=== PATIENT | male | born 1975 | race African-American/Black ===

== ENCOUNTER 2021-01-01 09:48 | Inpatient (IN) | payer OTHER ==
[2021-01-01 10:21] VITALS: BMI 24.9
[2021-01-01] MEDS ORDERED: MAGNESIUM CITRATE 300 ML BOTTLE PO PRN (11:33)
[2021-01-01] MEDS ORDERED: IBUPROFEN 400 MG TABLET (FP) PO PRN (11:33)
[2021-01-01] MEDS ORDERED: MENTHOL/PHENOL 1 EACH UD MM PRN (11:33)
[2021-01-01] MEDS ORDERED: MAGNESIUM HYDROX 2400MG/30ML ORAL SUSPENSION 30 ML CUP PO PRN (11:33)
[2021-01-01] MEDS ORDERED: MAG HYDROX/AL HYDROX/SIMETH 30 ML UNIT-DOSE CUP PO PRN (11:33)
[2021-01-01] MEDS ORDERED: ACETAMINOPHEN 325 MG TABLET (FP) PO PRN ×2 (11:33)
[2021-01-01] MEDS ORDERED: NICOTINE POLACRILEX 2 MG GUM BUC PRN (11:33)
[2021-01-01] MEDS ORDERED: BISMUTH SUBSALICYLATE 262 MG/15 ML BTL PO PRN (11:33)
[2021-01-01] MEDS ORDERED: METHOCARBAMOL 500 MG TABLET PO PRN (11:33)
[2021-01-01] MEDS ORDERED: ONDANSETRON *ODT* 4 MG TABLET SL PRN (11:33)
[2021-01-01] MEDS: NICOTINE 21 MG/24 HOURS TOPICAL PATCH TD SCH (12:29)
[2021-01-01] MEDS: PRENATAL VITAMINS W/ FOLIC ACID TABLET (FP) PO SCH (12:30)
[2021-01-01] MEDS ORDERED: MELATONIN 5 MG TABLETS PO PRN (14:30)
[2021-01-01 14:39] LABS: HEMATOCRIT 34.6 % (35.4-49); HEMOGLOBIN 11.6 GM/dL (11.7-16.9); MCH 30.4 pg (25.7-33.7); MCHC 33.6 g/dl (32.0-35.9); MEAN CELL VOLUME 90.4 fl (80-96); MEAN PLT VOLUME 9.1 fl (7.5-11.1); PLATELET COUNT 250 K/MM3 (134-434); RBC 3.83 M/mm3 (4.00-5.60); RDW 13.9 % (11.9-15.9); WHITE BLOOD COUNT 4.8 K/mm3 (4.0-10.0)
[2021-01-01 14:47] LABS: ALBUMIN 3.7 g/dl (3.4-5.0)
[2021-01-01 14:49] LABS: BLOOD UREA NITROGEN 19.2 mg/dL (7-18); CALCIUM 8.6 mg/dL (8.5-10.1)
[2021-01-01 14:51] LABS: CREATININE 0.8 mg/dL (0.55-1.3)
[2021-01-01 14:53] LABS: BILIRUBIN,TOTAL 0.3 mg/dL (0.2-1); TOT PROT 6.9 g/dl (6.4-8.2)
[2021-01-01] MEDS: hydrOXYzine PAMOATE 25 MG CAPSULE (FP) PO SCH ×3 (14:53→22:15)
[2021-01-01 15:34] LABS: HIV INTERPRETATION NEGATIVE (NEGATIVE)
[2021-01-01] MEDS ORDERED: OLANZapine 10 MG TABLET PO SCH (22:00)
[2021-01-01] MEDS ORDERED: MELATONIN 5 MG TABLETS PO SCH (22:00)
[2021-01-01] MEDS ORDERED: THIAMINE HCL 100 MG TABLET (FP) PO SCH (22:00)
[2021-01-02] MEDS: hydrOXYzine PAMOATE 25 MG CAPSULE (FP) PO SCH ×3 (05:19→14:53)
[2021-01-02] MEDS ORDERED: diazePAM 5 MG TABLET PO PRN (09:27)
[2021-01-02 09:35] VITALS: TEMP 97.8
[2021-01-02] MEDS: NICOTINE 21 MG/24 HOURS TOPICAL PATCH TD SCH (10:17)
[2021-01-02] MEDS: PRENATAL VITAMINS W/ FOLIC ACID TABLET (FP) PO SCH (10:17)
[2021-01-02] MEDS ORDERED: diazePAM 5 MG TABLET PO SCH (11:00)
[2021-01-02 13:00] VITALS: BP 108/77; PULSE 96
[2021-01-04] MEDS ORDERED: diazePAM 5 MG TABLET PO SCH (06:00)
[2021-01-05] MEDS ORDERED: diazePAM 5 MG TABLET PO SCH (06:00)
[2021-01-06] MEDS ORDERED: diazePAM 5 MG TABLET PO ONE (06:00)
== END 2021-01-02 15:40 | disposition left against medical advice (07) | DRG 770 ==
LOC: YASAS 09:48 → Y6N 11:42 → UNDOADMIN 11:42
PROVIDERS: ADMIT Allergy & Immunology; ATTEND Allergy & Immunology
PROC: HZ2ZZZZ Detoxification Services for Substance Abuse Treatment (ICD-10-PCS; principal; 2021-01-01)
DX: F10.230 Alcohol dependence with withdrawal, uncomplicated (principal); F14.20 Cocaine dependence, uncomplicated; F12.20 Cannabis dependence, uncomplicated; F17.210 Nicotine dependence, cigarettes, uncomplicated; F20.9 Schizophrenia, unspecified; F19.280 Other psychoactive substance dependence with psychoactive substance-induced anxiety disorder; F19.282 Other psychoactive substance dependence with psychoactive substance-induced sleep disorder; I69.154 Hemiplegia and hemiparesis following nontraumatic intracerebral hemorrhage affecting left non-dominant side; Z56.0 Unemployment, unspecified; Z59.0 Homelessness
CPT/HCPCS: 36415; 80053; 85027; 86780; 87389; C9803; U0003; U0005

== ENCOUNTER 2021-02-24 12:29 | Inpatient (IN) | payer OTHER ==
[2021-02-24 13:04] VITALS: BMI 22.4
[2021-02-24] MEDS ORDERED: MENTHOL/PHENOL 1 EACH UD MM PRN (14:24)
[2021-02-24] MEDS ORDERED: ACETAMINOPHEN 325 MG TABLET (FP) PO PRN ×2 (14:24)
[2021-02-24] MEDS ORDERED: MAGNESIUM HYDROX 2400MG/30ML ORAL SUSPENSION 30 ML CUP PO PRN (14:24)
[2021-02-24] MEDS ORDERED: BISMUTH SUBSALICYLATE 524 MG/30 ML PO PRN (14:24)
[2021-02-24] MEDS ORDERED: MAGNESIUM CITRATE 300 ML BOTTLE PO PRN (14:24)
[2021-02-24] MEDS ORDERED: IBUPROFEN 400 MG TABLET (FP) PO PRN (14:24)
[2021-02-24] MEDS ORDERED: METHOCARBAMOL 500 MG TABLET PO PRN (14:24)
[2021-02-24] MEDS ORDERED: ONDANSETRON *ODT* 4 MG TABLET SL PRN (14:24)
[2021-02-24] MEDS ORDERED: NICOTINE POLACRILEX 2 MG GUM BUC PRN (14:24)
[2021-02-24] MEDS ORDERED: MAG HYDROX/AL HYDROX/SIMETH 30 ML UNIT-DOSE CUP PO PRN (14:24)
[2021-02-24] MEDS ORDERED: cloNIDine HCL 0.1 MG TABLET PO PRN (14:40)
[2021-02-24] MEDS: hydrOXYzine PAMOATE 25 MG CAPSULE (FP) PO PRN (17:31)
[2021-02-24] MEDS: THIAMINE HCL 100 MG TABLET (FP) PO SCH (21:37)
[2021-02-24] MEDS ORDERED: MELATONIN 5 MG TABLETS PO SCH (22:00)
[2021-02-25] MEDS: PRENATAL VITAMINS W/ FOLIC ACID TABLET (FP) PO SCH (10:27)
[2021-02-25] MEDS: hydrOXYzine PAMOATE 25 MG CAPSULE (FP) PO PRN ×2 (10:28→22:12)
[2021-02-25] MEDS ORDERED: methaDONE HCL 10 MG TABLET (FOR DETOX USE ONLY) PO ONE (10:30)
[2021-02-25] MEDS ORDERED: MELATONIN 5 MG TABLETS PO PRN (11:28)
[2021-02-25] MEDS ORDERED: OLANZapine 10 MG TABLET PO SCH (22:00)
[2021-02-25] MEDS: THIAMINE HCL 100 MG TABLET (FP) PO SCH (22:12)
[2021-02-26] MEDS ORDERED: methaDONE HCL 10 MG TABLET (FOR DETOX USE ONLY) ONE (09:16)
[2021-02-26] MEDS: PRENATAL VITAMINS W/ FOLIC ACID TABLET (FP) PO SCH (10:38)
[2021-02-26 16:16] LABS: CHLORIDE 109 mmol/L (98-107); SODIUM 140 mmol/L (136-145)
[2021-02-26 16:18] LABS: HEMATOCRIT 38.4 % (35.4-49); HEMOGLOBIN 12.5 GM/dL (11.7-16.9); MCH 29.8 pg (25.7-33.7); MCHC 32.5 g/dl (32.0-35.9); MEAN CELL VOLUME 91.7 fl (80-96); MEAN PLT VOLUME 8.8 fl (7.5-11.1); PLATELET COUNT 269 10^3/uL (134-434); RBC 4.19 M/mm3 (4.00-5.60); RDW 14.6 % (11.9-15.9); WHITE BLOOD COUNT 5.1 K/mm3 (4.0-10.0)
[2021-02-26 16:23] LABS: ANION GAP 5 MMOL/L (8-16); BLOOD UREA NITROGEN 11.4 mg/dL (7-18); CALCIUM 8.3 mg/dL (8.5-10.1); CO2 27 mmol/L (21-32); GLUCOSE,RANDOM 101 mg/dL (74-106); SGOT/AST 12 U/L (15-37); SGPT/ALT 16 U/L (13-61)
[2021-02-26 16:24] LABS: BILIRUBIN,TOTAL < 0.1 mg/dL (0.2-1); TOT PROT 6.1 g/dl (6.4-8.2)
[2021-02-26 16:26] LABS: ALK PHOS 72 U/L (45-117)
[2021-02-26 16:27] LABS: CREATININE 0.8 mg/dL (0.55-1.3)
[2021-02-26 17:26] VITALS: BP 109/66; PULSE 95; TEMP 96.8
[2021-02-27] MEDS ORDERED: methaDONE HCL 10 MG TABLET (FOR DETOX USE ONLY) PO ONE (10:00)
[2021-03-01] MEDS ORDERED: methaDONE HCL 10 MG TABLET (FOR DETOX USE ONLY) PO ONE (10:00)
== END 2021-02-26 19:46 | disposition left against medical advice (07) | DRG 770 ==
LOC: YASAS 12:29 → Y3N 15:38
PROVIDERS: ADMIT Allergy & Immunology; ATTEND Allergy & Immunology
PROC: HZ2ZZZZ Detoxification Services for Substance Abuse Treatment (ICD-10-PCS; principal; 2021-02-24)
DX: F11.23 Opioid dependence with withdrawal (principal); F10.20 Alcohol dependence, uncomplicated; F14.20 Cocaine dependence, uncomplicated; F12.20 Cannabis dependence, uncomplicated; F17.210 Nicotine dependence, cigarettes, uncomplicated; F20.9 Schizophrenia, unspecified; M25.622 Stiffness of left elbow, not elsewhere classified; M25.632 Stiffness of left wrist, not elsewhere classified; M24.542 Contracture, left hand; I69.854 Hemiplegia and hemiparesis following other cerebrovascular disease affecting left non-dominant side; I69.892 Facial weakness following other cerebrovascular disease
CPT/HCPCS: 36415; 80053; 85027; 86780; C9803; U0003; U0005

== ENCOUNTER 2021-07-10 10:56 | Inpatient (IN) | payer OTHER ==
[2021-07-10] MEDS ORDERED: BISMUTH SUBSALICYLATE 524 MG/30 ML PO PRN (11:33)
[2021-07-10] MEDS ORDERED: MAG HYDROX/AL HYDROX/SIMETH 30 ML UNIT-DOSE CUP PO PRN (11:33)
[2021-07-10] MEDS ORDERED: IBUPROFEN 400 MG TABLET (FP) PO PRN (11:33)
[2021-07-10] MEDS ORDERED: MAGNESIUM CITRATE 300 ML BOTTLE PO PRN (11:33)
[2021-07-10] MEDS ORDERED: MAGNESIUM HYDROX 2400MG/30ML ORAL SUSPENSION 30 ML CUP PO PRN (11:33)
[2021-07-10] MEDS ORDERED: MENTHOL/PHENOL 1 EACH UD MM PRN (11:33)
[2021-07-10] MEDS ORDERED: ACETAMINOPHEN 325 MG TABLET (FP) PO PRN ×2 (11:33)
[2021-07-10] MEDS ORDERED: ONDANSETRON *ODT* 4 MG TABLET SL PRN (11:33)
[2021-07-10] MEDS ORDERED: METHOCARBAMOL 500 MG TABLET PO PRN (11:33)
[2021-07-10] MEDS ORDERED: NICOTINE 10 MG CARTRIDGE (INHALER) IH PRN (11:33)
[2021-07-10 11:46] VITALS: BMI 22.2
[2021-07-10] MEDS: PRENATAL VITAMINS W/ FOLIC ACID TABLET (FP) PO SCH (13:28)
[2021-07-10] MEDS: hydrOXYzine PAMOATE 25 MG CAPSULE (FP) PO SCH ×3 (13:31→22:36)
[2021-07-10 16:47] LABS: HEMATOCRIT 45.2 % (35.4-49); HEMOGLOBIN 15.1 GM/dL (11.7-16.9); MCH 30.2 pg (25.7-33.7); MCHC 33.3 g/dl (32.0-35.9); MEAN CELL VOLUME 90.6 fl (80-96); PLATELET COUNT 235 10^3/uL (134-434); RBC 4.99 M/mm3 (4.00-5.60); RDW 15.4 % (11.9-15.9); WHITE BLOOD COUNT 4.5 K/mm3 (4.0-10.0)
[2021-07-10 16:48] LABS: ALBUMIN 3.8 g/dl (3.4-5.0); BLOOD UREA NITROGEN 18.5 mg/dL (7-18); CALCIUM 9.4 mg/dL (8.5-10.1)
[2021-07-10 16:53] LABS: BILIRUBIN,TOTAL 0.4 mg/dL (0.2-1); TOT PROT 8.1 g/dl (6.4-8.2)
[2021-07-10] MEDS ORDERED: DIVALPROEX SODIUM 500 MG TABLET E.C. PO SCH (22:00)
[2021-07-10] MEDS ORDERED: risperiDONE 1 MG TABLET PO SCH (22:00)
[2021-07-10] MEDS: MELATONIN 5 MG TABLETS PO SCH (22:35)
[2021-07-10] MEDS: THIAMINE HCL 100 MG TABLET (FP) PO SCH (22:35)
[2021-07-10] MEDS: risperiDONE 0.5 MG TABLET PO SCH (22:36)
[2021-07-10] MEDS: BISMUTH SUBSALICYLATE 524 MG/30 ML PO PRN (22:57)
[2021-07-11] MEDS: hydrOXYzine PAMOATE 25 MG CAPSULE (FP) PO SCH ×6 (05:44→22:42)
[2021-07-11] MEDS ORDERED: NICOTINE 14 MG/24 HOURS TOPICAL PATCH TD SCH (10:00)
[2021-07-11] MEDS: PRENATAL VITAMINS W/ FOLIC ACID TABLET (FP) PO SCH (10:28)
[2021-07-11] MEDS: BISMUTH SUBSALICYLATE 524 MG/30 ML PO PRN (10:29)
[2021-07-11] MEDS: risperiDONE 0.5 MG TABLET PO SCH ×2 (10:29→22:42)
[2021-07-11] MEDS: THIAMINE HCL 100 MG TABLET (FP) PO SCH (22:42)
[2021-07-11] MEDS: MELATONIN 5 MG TABLETS PO SCH (22:45)
[2021-07-12] MEDS: hydrOXYzine PAMOATE 25 MG CAPSULE (FP) PO SCH (06:11)
[2021-07-12] MEDS: BISMUTH SUBSALICYLATE 524 MG/30 ML PO PRN (06:19)
[2021-07-12 09:21] VITALS: BP 127/81; PULSE 96; TEMP 98.1
== END 2021-07-12 09:56 | disposition home or self-care (01) | DRG 774 ==
LOC: YASAS 10:56 → Y6N 12:39
PROVIDERS: ADMIT Allergy & Immunology; ATTEND Allergy & Immunology
PROC: HZ2ZZZZ Detoxification Services for Substance Abuse Treatment (ICD-10-PCS; principal; 2021-07-10)
DX: F10.230 Alcohol dependence with withdrawal, uncomplicated (principal); F14.20 Cocaine dependence, uncomplicated; F12.20 Cannabis dependence, uncomplicated; F17.210 Nicotine dependence, cigarettes, uncomplicated; F19.24 Other psychoactive substance dependence with psychoactive substance-induced mood disorder; F19.282 Other psychoactive substance dependence with psychoactive substance-induced sleep disorder; I10 Essential (primary) hypertension; R19.7 Diarrhea, unspecified; R10.9 Unspecified abdominal pain; I69.354 Hemiplegia and hemiparesis following cerebral infarction affecting left non-dominant side; G47.00 Insomnia, unspecified; Z91.19 Patient's noncompliance with other medical treatment and regimen; Z56.0 Unemployment, unspecified; Z59.02 Unsheltered homelessness
CPT/HCPCS: 36415; 80053; 80164; 85027; 86780; C9803; Q0162; U0003; U0005

== ENCOUNTER 2021-07-11 12:42 | Emergency (ER) | payer OTHER ==
[2021-07-11 13:39] VITALS: TEMP 98.6; BMI 24.3
[2021-07-11] MEDS ORDERED: ONDANSETRON 4 MG/2 ML VIAL IVPB ONE (14:42)
[2021-07-11] MEDS ORDERED: SODIUM CHLORIDE 0.9% 500 ML INFUS.BAG IV ONE (14:42)
[2021-07-11] MEDS ORDERED: FAMOTIDINE 20 MG/50 ML IVPB 20 MG in PREMIX 50 IVPB ONE (14:42)
[2021-07-11] MEDS ORDERED: MAG HYDROX/AL HYDROX/SIMETH -MYLANTA- ORAL SUSPENSION PO ONE (14:42)
[2021-07-11] MEDS ORDERED: MAG HYDROX/AL HYDROX/SIMETH 30 ML UNIT-DOSE CUP ONE (16:14)
[2021-07-11] MEDS ORDERED: FAMOTIDINE 20 MG/50 ML IVPB 20 MG/50 ML MG IVPB ONE (16:15)
[2021-07-11] MEDS ORDERED: ONDANSETRON 4 MG/2 ML VIAL ONE (16:15)
[2021-07-11 16:46] LABS: BASO % 0.9 % (0-2.0); EOS % 4.1 % (0-4.5); HEMATOCRIT 44.8 % (35.4-49); MCH 30.3 pg (25.7-33.7); MCHC 33.5 g/dl (32.0-35.9); MEAN CELL VOLUME 90.6 fl (80-96); MEAN PLT VOLUME 8.8 fl (7.5-11.1); MONO % 13.4 % (3.8-10.2); NEUT % 51.6 % (42.8-82.8); PLATELET COUNT 236 10^3/uL (134-434); RBC 4.94 M/mm3 (4.00-5.60); RDW 15.1 % (11.9-15.9); WHITE BLOOD COUNT 3.5 K/mm3 (4.0-10.0)
[2021-07-11 17:13] LABS: CALCIUM 9.4 mg/dL (8.5-10.1)
[2021-07-11 17:14] LABS: ALBUMIN 3.4 g/dl (3.4-5.0); BLOOD UREA NITROGEN 18.6 mg/dL (7-18)
[2021-07-11 17:17] LABS: CREATININE 1.1 mg/dL (0.55-1.3)
[2021-07-11 17:18] LABS: BILIRUBIN,TOTAL 0.2 mg/dL (0.2-1); TOT PROT 7.6 g/dl (6.4-8.2)
[2021-07-11 17:28] VITALS: BP 100/65; PULSE 84
== END 2021-07-11 18:20 | disposition home or self-care (01) ==
LOC: JER 12:42
PROC: 3E03329 Introduction of Other Anti-infective into Peripheral Vein, Percutaneous Approach (ICD-10-PCS; principal; 2021-07-11)
PROC: 3E033NZ Introduction of Analgesics, Hypnotics, Sedatives into Peripheral Vein, Percutaneous Approach (ICD-10-PCS; 2021-07-11)
DX: R11.2 Nausea with vomiting, unspecified (principal)
CPT/HCPCS: 36415; 71045-TC-FY; 80053; 83690; 85025; 93005; 93010; 99284-25

== ENCOUNTER 2021-08-14 15:31 | Emergency (ER) | payer OTHER ==
[2021-08-14 16:02] VITALS: BP 148/101; PULSE 119; TEMP 98.1; BMI 22.5
== END 2021-08-14 21:43 | disposition home or self-care (01) ==
LOC: JER 15:31
DX: R22.31 Localized swelling, mass and lump, right upper limb (principal); R22.32 Localized swelling, mass and lump, left upper limb; F11.90 Opioid use, unspecified, uncomplicated
CPT/HCPCS: 73110-TC-LT-FY; 73110-TC-RT-FY; 73130-TC-LT-FY; 73130-TC-RT-FY; 99284-25

== ENCOUNTER 2021-08-14 22:33 | Inpatient (IN) | payer OTHER ==
[2021-08-14 14:48] VITALS: BMI 22.5
[2021-08-14] MEDS ORDERED: MAGNESIUM HYDROX 2400MG/30ML ORAL SUSPENSION 30 ML CUP PO PRN (22:59)
[2021-08-14] MEDS ORDERED: MAG HYDROX/AL HYDROX/SIMETH 30 ML UNIT-DOSE CUP PO PRN (22:59)
[2021-08-14] MEDS ORDERED: LOPERAMIDE HCL 2 MG CAPSULE PO PRN (22:59)
[2021-08-14] MEDS ORDERED: IBUPROFEN 400 MG TABLET (FP) PO PRN (22:59)
[2021-08-14] MEDS ORDERED: MENTHOL/PHENOL 1 EACH UD MM PRN (22:59)
[2021-08-14] MEDS ORDERED: DICYCLOMINE HCL 10 MG CAPSULE PO PRN (22:59)
[2021-08-14] MEDS ORDERED: ONDANSETRON *ODT* 4 MG TABLET SL PRN (22:59)
[2021-08-14] MEDS ORDERED: MAGNESIUM CITRATE 300 ML BOTTLE PO PRN (22:59)
[2021-08-14] MEDS ORDERED: ACETAMINOPHEN 325 MG TABLET (FP) PO PRN ×2 (22:59)
[2021-08-14] MEDS ORDERED: BISMUTH SUBSALICYLATE 524 MG/30 ML PO PRN (22:59)
[2021-08-14] MEDS ORDERED: NICOTINE POLACRILEX 2 MG GUM BUC PRN (22:59)
[2021-08-14] MEDS ORDERED: chlordiazePOXIDE HCL 25 MG CAPSULE PO PRN (23:01)
[2021-08-15] MEDS: CLINDAMYCIN HCL 150 MG CAPSULE (FP) PO SCH ×4 (04:02→22:21)
[2021-08-15] MEDS: chlordiazePOXIDE HCL 25 MG CAPSULE PO SCH ×5 (04:02→22:21)
[2021-08-15] MEDS: hydrOXYzine PAMOATE 25 MG CAPSULE (FP) PO SCH ×5 (05:13→22:21)
[2021-08-15] MEDS: PRENATAL VITAMINS W/ FOLIC ACID TABLET (FP) PO SCH (10:49)
[2021-08-15] MEDS: METHOCARBAMOL 500 MG TABLET PO PRN (10:49)
[2021-08-15] MEDS: risperiDONE 1 MG TABLET PO SCH ×2 (11:25→22:21)
[2021-08-15 13:53] LABS: HEMATOCRIT 33.1 % (35.4-49); HEMOGLOBIN 10.8 GM/dL (11.7-16.9); MCH 29.6 pg (25.7-33.7); MCHC 32.6 g/dl (32.0-35.9); MEAN CELL VOLUME 90.9 fl (80-96); MEAN PLT VOLUME 8.3 fl (7.5-11.1); PLATELET COUNT 270 10^3/uL (134-434); RBC 3.64 M/mm3 (4.00-5.60); RDW 14.6 % (11.9-15.9)
[2021-08-15 13:58] LABS: ALBUMIN 3.1 g/dl (3.4-5.0); BLOOD UREA NITROGEN 15.6 mg/dL (7-18); CALCIUM 8.6 mg/dL (8.5-10.1)
[2021-08-15 14:01] LABS: CREATININE 0.8 mg/dL (0.55-1.3)
[2021-08-15 14:03] LABS: BILIRUBIN,TOTAL 0.2 mg/dL (0.2-1); TOT PROT 6.2 g/dl (6.4-8.2)
[2021-08-15] MEDS ORDERED: MELATONIN 5 MG TABLETS PO SCH (22:00)
[2021-08-15] MEDS ORDERED: THIAMINE HCL 100 MG TABLET (FP) PO SCH (22:00)
[2021-08-16] MEDS: chlordiazePOXIDE HCL 25 MG CAPSULE PO SCH ×2 (06:26→10:21)
[2021-08-16] MEDS: hydrOXYzine PAMOATE 25 MG CAPSULE (FP) PO SCH ×2 (06:26→10:21)
[2021-08-16] MEDS: CLINDAMYCIN HCL 150 MG CAPSULE (FP) PO SCH (06:26)
[2021-08-16] MEDS: METHOCARBAMOL 500 MG TABLET PO PRN (10:21)
[2021-08-16] MEDS: PRENATAL VITAMINS W/ FOLIC ACID TABLET (FP) PO SCH (10:21)
[2021-08-16] MEDS: risperiDONE 1 MG TABLET PO SCH (10:21)
[2021-08-16 11:05] VITALS: BP 132/75; PULSE 95; TEMP 98.3
[2021-08-17] MEDS ORDERED: chlordiazePOXIDE HCL 10 MG CAPSULE PO PRN
[2021-08-17] MEDS ORDERED: chlordiazePOXIDE HCL 10 MG CAPSULE PO SCH (05:00)
[2021-08-18] MEDS ORDERED: chlordiazePOXIDE HCL 10 MG CAPSULE PO SCH (05:00)
[2021-08-19] MEDS ORDERED: chlordiazePOXIDE HCL 10 MG CAPSULE PO ONE (05:00)
== END 2021-08-16 11:22 | disposition left against medical advice (07) | DRG 770 ==
LOC: YASAS 22:33 → Y6N 08-15 02:24
PROVIDERS: ADMIT Allergy & Immunology; ATTEND Allergy & Immunology
PROC: HZ2ZZZZ Detoxification Services for Substance Abuse Treatment (ICD-10-PCS; principal; 2021-08-15)
DX: F10.230 Alcohol dependence with withdrawal, uncomplicated (principal); F11.20 Opioid dependence, uncomplicated; F14.20 Cocaine dependence, uncomplicated; F12.20 Cannabis dependence, uncomplicated; F17.210 Nicotine dependence, cigarettes, uncomplicated; F19.282 Other psychoactive substance dependence with psychoactive substance-induced sleep disorder; F19.24 Other psychoactive substance dependence with psychoactive substance-induced mood disorder; F20.9 Schizophrenia, unspecified; L03.114 Cellulitis of left upper limb; L03.113 Cellulitis of right upper limb; I69.854 Hemiplegia and hemiparesis following other cerebrovascular disease affecting left non-dominant side; I69.898 Other sequelae of other cerebrovascular disease; I69.892 Facial weakness following other cerebrovascular disease; R26.89 Other abnormalities of gait and mobility; Z56.0 Unemployment, unspecified; Z59.00 Homelessness unspecified
CPT/HCPCS: 36415; 73110-TC-LT-FY; 73110-TC-RT-FY; 73130-TC-LT-FY; 73130-TC-RT-FY; 80053; 85027; 86780; 93005; 93010; 99284-25; C9803; J2794; U0003; U0005

== ENCOUNTER 2022-06-25 10:27 | Inpatient (IN) | payer OTHER ==
[2022-06-25 11:41] VITALS: BMI 25.6
[2022-06-25] MEDS ORDERED: ACETAMINOPHEN 325 MG TABLET (FP) PO PRN ×2 (12:31)
[2022-06-25] MEDS ORDERED: NALOXONE HCL (KLOXXADO) 8 MG SPRAY NS PRN (12:31)
[2022-06-25] MEDS ORDERED: IBUPROFEN 400 MG TABLET (FP) PO PRN (12:31)
[2022-06-25] MEDS ORDERED: IBUPROFEN 600 MG TABLET (FP) PO PRN (12:31)
[2022-06-25] MEDS ORDERED: NICOTINE 10 MG CARTRIDGE (INHALER) IH PRN (12:31)
[2022-06-25] MEDS ORDERED: POLYETHYLENE GLYCOL (HEALTHYLAX) 3350 17 GM PACKET PO PRN (12:31)
[2022-06-25] MEDS ORDERED: BISMUTH SUBSALICYLATE 524 MG/30 ML PO PRN (12:31)
[2022-06-25] MEDS ORDERED: NICOTINE POLACRILEX 2 MG GUM BUC PRN (12:31)
[2022-06-25] MEDS ORDERED: MAG HYDROX/AL HYDROX/SIMETH 30 ML UNIT-DOSE CUP PO PRN (12:31)
[2022-06-25] MEDS ORDERED: LOPERAMIDE HCL 2 MG CAPSULE PO PRN (12:31)
[2022-06-25] MEDS ORDERED: ONDANSETRON *ODT* 4 MG TABLET SL PRN (12:31)
[2022-06-25] MEDS ORDERED: DICYCLOMINE HCL 10 MG CAPSULE PO PRN (12:31)
[2022-06-25] MEDS ORDERED: MAGNESIUM HYDROX 2400MG/30ML ORAL SUSPENSION 30 ML CUP PO PRN (12:31)
[2022-06-25] MEDS ORDERED: BENZOCAINE/MENTHOL (CHLORASEPTIC ) LOZENGE MM PRN (12:31)
[2022-06-25] MEDS ORDERED: METHOCARBAMOL 500 MG TABLET PO PRN (12:31)
[2022-06-25] MEDS: PRENATAL VITAMINS W/ FOLIC ACID TABLET (FP) PO SCH (14:21)
[2022-06-25 17:08] VITALS: RESP 18
[2022-06-25 17:32] LABS: HEMATOCRIT 37.6 % (35.4-49); HEMOGLOBIN 12.3 GM/dL (11.7-16.9); MCH 29.5 pg (25.7-33.7); MCHC 32.8 g/dl (32.0-35.9); MEAN CELL VOLUME 90.2 fl (80-96); MEAN PLT VOLUME 9.6 fl (7.5-11.1); PLATELET COUNT 230 10^3/uL (134-434); RBC 4.17 M/mm3 (4.00-5.60); RDW 14.2 % (11.9-15.9); WHITE BLOOD COUNT 7.6 K/mm3 (4.0-10.0)
[2022-06-25 17:39] LABS: CALCIUM 8.9 mg/dL (8.5-10.1)
[2022-06-25 17:40] LABS: ALBUMIN 3.6 g/dl (3.4-5.0); BLOOD UREA NITROGEN 22.6 mg/dL (7-18)
[2022-06-25] MEDS: chlordiazePOXIDE HCL 25 MG CAPSULE PO SCH ×2 (17:40→22:23)
[2022-06-25 17:43] LABS: CREATININE 0.9 mg/dL (0.55-1.3)
[2022-06-25 17:45] LABS: BILIRUBIN,TOTAL 0.2 mg/dL (0.2-1)
[2022-06-25] MEDS ORDERED: MELATONIN 5 MG TABLETS PO SCH (22:00)
[2022-06-25] MEDS ORDERED: THIAMINE HCL 100 MG TABLET (FP) PO SCH (22:00)
[2022-06-26] MEDS: chlordiazePOXIDE HCL 25 MG CAPSULE PO SCH ×2 (05:23→10:35)
[2022-06-26] MEDS: PRENATAL VITAMINS W/ FOLIC ACID TABLET (FP) PO SCH (10:34)
[2022-06-26 12:48] VITALS: BP 117/74; PULSE 103; TEMP 97.8
[2022-06-27] MEDS ORDERED: chlordiazePOXIDE HCL 25 MG CAPSULE PO SCH (05:00)
[2022-06-28] MEDS ORDERED: chlordiazePOXIDE HCL 10 MG CAPSULE PO SCH (05:00)
[2022-06-29] MEDS ORDERED: chlordiazePOXIDE HCL 10 MG CAPSULE PO SCH (05:00)
[2022-06-30] MEDS ORDERED: chlordiazePOXIDE HCL 10 MG CAPSULE PO ONE (05:00)
== END 2022-06-26 14:49 | disposition home or self-care (01) | DRG 774 ==
LOC: YASAS 10:27 → Y3N 13:09
PROVIDERS: ADMIT Allergy & Immunology; ATTEND Surgery
PROC: HZ2ZZZZ Detoxification Services for Substance Abuse Treatment (ICD-10-PCS; principal; 2022-06-25)
DX: F10.230 Alcohol dependence with withdrawal, uncomplicated (principal); F14.20 Cocaine dependence, uncomplicated; F12.20 Cannabis dependence, uncomplicated; F17.210 Nicotine dependence, cigarettes, uncomplicated; F20.9 Schizophrenia, unspecified; F31.9 Bipolar disorder, unspecified; F41.8 Other specified anxiety disorders; F43.10 Post-traumatic stress disorder, unspecified; I69.859 Hemiplegia and hemiparesis following other cerebrovascular disease affecting unspecified side
CPT/HCPCS: 36415; 80053; 83036; 85027; 86780; C9803-CS; U0003; U0005